=== PATIENT | male | born 1995 | race Caucasian/White ===

== ENCOUNTER 2019-06-24 19:46 | Emergency (ER) | payer BC ==
[~2019-06-24 19:46] MED LIST: Sodium Chloride Irrig Solution 250 ML BOT ONE
[2019-06-24] MEDS ORDERED: Acetaminophen/Codeine 30-300mg Tablet ONE (20:26)
[2019-06-24] MEDS ORDERED: Lidocaine 1% 20 ML MDV ONE (20:26)
[2019-06-24] MEDS ORDERED: Adacel (T-DAP) 0.5 ML SYRINGE ONE (21:01)
[2019-06-24] MEDS ORDERED: Sulfameth/Trimethoprim DS 800-160mg TAB ONE (21:01)
[2019-06-24] MEDS ORDERED: Mupirocin 2% Ointment 22 GM Tube ONE (21:01)
[2019-06-24] MEDS ORDERED: Bacitracin 1 PK ONE (21:02)
== END 2019-06-24 21:15 | disposition home or self-care (01) ==
LOC: MADERS 19:46
DX: S61.314A Laceration without foreign body of right ring finger with damage to nail, initial encounter (principal); X50.1XXA Overexertion from prolonged static or awkward postures, initial encounter
CPT/HCPCS: 11750; 90471; 90715; J2001